=== PATIENT | male | born 1945 | race Caucasian/White ===

== ENCOUNTER 2020-12-11 12:32 | Outpatient (CLI) | payer MEDICARE, SELFPAY ==
--- NOTE | ~2020-12-11 | XR_ITS ---
XR ribs LT 2V w CXR 2V DATE: 12/11/2020 12:55 INDICATION: Lower rib pain following a fall 2 months ago TECHNIQUE: PA and lateral chest. 3 views of the left ribs. COMPARISON: None FINDINGS: There are old healed left sixth through eighth posterolateral rib fractures. No apparent re cent left rib fracture. Diffuse osteopenia. Normal heart size. Aortic calcification. No hilar or mediastinal enlargement. No pulmonary infiltrate or consolidation, pleural effusion or pulmonary vascular congestion or pneumo thorax. IMPRESSION: No apparent recent left rib fracture No active cardiac pulmonary disease Aortic calcification Reviewed, dictated and finalized at location A.
== END 2020-12-11 12:33 | disposition home or self-care (01) ==
PROVIDERS: PCP Family Medicine Adolescent Medicine; Visit Provider Physician Assistant
DX: R07.81 Pleurodynia (principal); I70.0 Atherosclerosis of aorta
CPT/HCPCS: 71046; 71100

== ENCOUNTER 2021-03-22 01:47 | Day surgery (SDC) | payer MEDICARE, SELFPAY ==
[2021-03-06 15:38] VITALS: BMI 29.1
[2021-03-22 08:12] VITALS: BP 181/73; PULSE 69; RESP 18; TEMP 36.2; O2SAT 100; BMI 28.8
[2021-03-22] MEDS: LACTATED RINGERS 1,000 ML 150 ML IV CONT (08:41)
[2021-03-22 08:45] LABS: Glucose Point of Care 236 mg/dl (65-105)
--- NOTE | 2021-03-22 08:51 | WPDHPUPDATE1 ---
History and Physical Update Update Date/Time: 03/22/21 08:51 History and Physical has been reviewed, including an updated exam of the patient. There are NO changes in the patient's condition. Risks, benefits, and alternatives have been discussed and questions answered. Patient agrees to proceed with procedure.
--- NOTE | 2021-03-22 09:05 | WPDANESEPPF ---
Anes - Initial Pre Proc Eval Procedure: Operation Date: 03/22/21 09:15 Proposed Procedures p Colonoscopy - Jaswinder Troncoso MD Date/Time: 03/22/21 09:05 Surgeon: Jaswinder Troncoso MD Pre Op Diagnosis: change in bowel habits Patient Data Age: 75 Gender: M Height: 1.73 m Weight: 85.9 kg Last Vital Signs Temp 97.1 F L 03/22/21 08:12 Pulse 69 03/22/21 08:12 Resp 18 03/22/21 08:12 BP 181/73 H 03/22/21 08:12 Pulse Ox 100 03/22/21 08:12 Allergies Allergy/AdvReac Type Severity Reaction Status Date / Time No Known Allergies Allergy Verified 03/06/21 15:38 Home Medications Medication Instructions Recorded Confirmed Type insulin admin supplies 01/02/21 02/14/21 History insulin detemir U-100 100 unit/mL 40 unit SUBCUT QHS 01/02/21 03/06/21 History subcutaneous solution losartan 50 mg tablet 50 mg PO DAILY 01/02/21 03/06/21 History pravastatin 20 mg tablet 80 mg PO DAILY tablet 01/02/21 03/06/21 History calcium polycarbophil [FiberCon] 1,250 mg PO BID 03/06/21 03/06/21 History cilostazol 100 mg PO BID 03/06/21 03/06/21 History dulaglutide [Trulicity] 0.75 mg SUBCUT WEEKLY 03/06/21 03/06/21 History insulin aspart U-100 [Novolog 6 - 28 sliding scale dose SUBCUT 03/06/21 03/06/21 History Flexpen U-100 Insulin] TID loperamide [Imodium A-D] 1 mg PO QID PRN 03/06/21 03/06/21 History mirtazapine 30 mg PO HS 03/06/21 03/06/21 History Laboratory Tests 03/22/21 08:41 POC Capillary Glucose 236 mg/dl H mg/dl (65-105) Patient hx anesthesia problems: none Family hx anesthesia problems: none Results Review: All pre-operative results and documents have been reviewed as part of the pre-operative evaluation. [facility] Past Medical History Medical History Hyperlipidemia Family History Family History Grandparent Diabetes mellitus Family history of cardiovascular disease Mother Family history of malignant neoplasm Social History Social History (Updated 02/14/21 @ 14:13 by Ernestina Valencia CMA) Smoking packs per day: 1 Smoking cigarettes per day: 20.0 Years smoked: 55 Smoking pack-years: 55.00 Smoking status: Current every day smoker Tobacco type: cigarettes Alcohol intake: never Substance use: never Living arrangements: alone Spiritual care concerns: No Anes - Eval Final PreProcedure Day of Procedure 03/22/21 09:05 Patient weight: obese Heart: regular rate and rhythm Lungs: clear to auscultation Airway: Mallampati scale class II Neurological: alert and oriented Last oral intake: >/= 8 hours ASA classification: III Emergent: no Anesthetic plan: proceed Anesthesia type and monitoring: general GIVS and standard monitoring Results Review: All pre-operative results and documents have been reviewed as part of the pre-operative evaluation. Informed Consent: The patient's anesthetic plan and its attendant risks and benefits were discussed with the patient/family/POA. Questions were solicited and answers provided to the satisfaction of the patient/family/POA.
[2021-03-22 09:31] VITALS: BP 124/80; PULSE 44; RESP 16; O2SAT 98
[2021-03-22 09:41] VITALS: BP 139/83; BP 152/92; PULSE 52; PULSE 53; RESP 19; O2SAT 100
[2021-03-22 09:44] LABS: Glucose Point of Care 216 mg/dl (65-105)
--- NOTE | 2021-03-22 10:43 | WPDGICN ---
Assessment and Plan Assessment and plan (1) History of colon polyps: Code(s): Z86.010 - Personal history of colonic polyps Status: Acute Assessment and Plan: Patient has a history of colon polyps 3 years ago for that reason colonoscopy will be performed today and should be performed every 3 or 4 years in the future. (2) Change in bowel habit: Code(s): R19.4 - Change in bowel habit Status: Acute Assessment and Plan: Patient has alteration in his bowel habits with constipation and occasional loose stools. FiberCon appears to be improving should be continued long-term. GI Consult Note Consult date/time: 03/22/21 10:43 HPI: Tal Barrientos is a 75 year old male Presents for colonoscopy. He he was identified as having colon polyps 3 years ago. He presents today for follow-up exam. Does report irregular bowel habits with tendency towards constipation occasional diarrhea. He states taking FiberCon is helped his bowel habits dramatically. His bowel habits are now regular. He denies any bleeding. He presents today for colonoscopy Review of Systems Review of Systems: All systems reviewed & are unremarkable except as noted in HPI and below PMFSH Past Medical History Medical History Hyperlipidemia Family History Family History Grandparent Diabetes mellitus Family history of cardiovascular disease Mother Family history of malignant neoplasm Social History Social History (Updated 02/14/21 @ 14:13 by Ernestina Valencia CMA) Smoking packs per day: 1 Smoking cigarettes per day: 20.0 Years smoked: 55 Smoking pack-years: 55.00 Smoking status: Current every day smoker Tobacco type: cigarettes Alcohol intake: never Substance use: never Living arrangements: alone Spiritual care concerns: No Meds Home Medications and Allergies Home Medications Medication Instructions Recorded Confirmed Type insulin admin supplies 01/02/21 02/14/21 History insulin detemir U-100 100 unit/mL 40 unit SUBCUT QHS 01/02/21 03/06/21 History subcutaneous solution losartan 50 mg tablet 50 mg PO DAILY 01/02/21 03/06/21 History pravastatin 20 mg tablet 80 mg PO DAILY tablet 01/02/21 03/06/21 History calcium polycarbophil [FiberCon] 1,250 mg PO BID 03/06/21 03/06/21 History cilostazol 100 mg PO BID 03/06/21 03/06/21 History dulaglutide [Trulicity] 0.75 mg SUBCUT WEEKLY 03/06/21 03/06/21 History insulin aspart U-100 [Novolog 6 - 28 sliding scale dose SUBCUT 03/06/21 03/06/21 History Flexpen U-100 Insulin] TID loperamide [Imodium A-D] 1 mg PO QID PRN 03/06/21 03/06/21 History mirtazapine 30 mg PO HS 03/06/21 03/06/21 History Allergies Allergy/AdvReac Type Severity Reaction Status Date / Time No Known Allergies Allergy Verified 03/06/21 15:38 Vital Signs Vital Signs - 24 hr 03/22/21 08:12 03/22/21 09:31 03/22/21 09:41 Temperature 97.1 F L Pulse Rate 69 44 L 52 L Respiratory Rate 18 16 19 Blood Pressure 181/73 H 124/80 152/92 H Pulse Oximetry 100 98 100 Exam Narrative: physical exam reveals patient be alert. Vital signs stable. HEENT exam unremarkable. Patient is anicteric. Lungs are clear to auscultation and percussion. Heart is without murmur or extra sounds. Abdominal exam bowel sounds present soft nontender with no organomegaly. Digital external rectal exam is normal.
== END 2021-03-22 10:03 | disposition home or self-care (01) ==
PROVIDERS: PCP Family Medicine Adolescent Medicine; Visit Provider Internal Medicine Gastroenterology
PROC: 0DJD8ZZ Inspection of Lower Intestinal Tract, Via Natural or Artificial Opening Endoscopic (ICD-10-PCS; CPT 45378; principal; 2021-03-22 09:15)
DX: R19.7 Diarrhea, unspecified (principal); D12.3 Benign neoplasm of transverse colon; D12.4 Benign neoplasm of descending colon; D12.7 Benign neoplasm of rectosigmoid junction; K63.5 Polyp of colon; K64.8 Other hemorrhoids; K57.30 Diverticulosis of large intestine without perforation or abscess without bleeding; E78.5 Hyperlipidemia, unspecified; E11.9 Type 2 diabetes mellitus without complications; Z79.4 Long term (current) use of insulin; Z79.899 Other long term (current) drug therapy; F17.210 Nicotine dependence, cigarettes, uncomplicated; E66.9 Obesity, unspecified; Z68.28 Body mass index [BMI] 28.0-28.9, adult
CPT/HCPCS: 45380; 45385; 82948; 88305; J2704; J7120

== ENCOUNTER → 2022-02-01 08:41 | Outpatient (CLI) | payer MEDICARE, SELFPAY ==
--- NOTE | ~2022-02-01 | CT_ITS ---
EXAMINATION: CT diagnostic chest wo con DATE: 02/01/2022 08:58 INDICATION: Left anterior chest pain TECHNIQUE: Computed tomography (CT) of the chest was performed without intravenous contrast. The dose -length product (DLP) was 299.26 mGy-cm. Automated exposure control and iterative reconstruction tech nique were employed. COMPARISON: None FINDINGS: There is mild atelectasis. The lungs are free of focal airspace opacities. Nodules of the r ight upper lobe measure up to 4 mm. No pleural effusion or pneumothorax. The heart size is normal. Ca lcified coronary artery atherosclerosis is noted. There are no pathologically enlarged thoracic lymph nodes. Bilateral gynecomastia is noted. There is moderate thoracic spondylosis. IMPRESSION: 1. No CT correlate for the patient's symptoms. Reviewed, dictated and finalized at location F.
== END ==
PROVIDERS: PCP Family Medicine Adolescent Medicine; Visit Provider Family Medicine Adolescent Medicine
DX: R07.89 Other chest pain (principal)
CPT/HCPCS: 71250

== ENCOUNTER 2022-10-24 15:38 | Outpatient (CLI) | payer MEDICARE, SELFPAY ==
--- NOTE | 2022-10-24 15:54 | ECHO_ITS ---
Patient Info Name: Tal Barrientos Age: 77 years : 1945 Gender: Male Ht: 67 in Wt: 190 lbs BSA: 2.04 m2 HR: 64 bpm BP: 179 / 95 mmHg Heart Rhythm: Sinus Rhythm Technical Quality: Fair Exam Date: 10/24/2022 4:02 PM Exam Location: [facility] Patient Status: Outpatient Admit Date: 10/24/2022 Staff Ordering Physician: Bartolo Morejon MD Attending Provider: Bartolo Morejon MD Referring Physician: Jean-Pierre MOERJON; Exam Type: CA echo doppler color flow Study Info Indications - murmur/dyspnea Complete two-dimensional, color flow and Doppler transthoracic echocardiogram is performed. Summary 1. Complete two-dimensional, color flow and Doppler transthoracic echocardiogram is performed. 2. Left ventricular chamber dimension is moderately enlarged. 3. Left ventricular systolic function is normal, estimated at 55-60%. 4. There is moderate concentric increased left ventricular wall thickness. 5. The left ventricular diastolic function is grade I diastolic dysfunction. 6. E/e' 4 is not elevated. 7. Left atrial chamber dimension is moderately enlarged. 8. There is moderate aortic valve sclerosis. 9. There is mild to moderate aortic valve stenosis with a peak velocity of 198 cm/s, mean gradient of 9 mmHg, and aortic valve area of 1.6 cm2. 10. There is mild aortic valve regurgitation. 11. The mitral valve has mildly calcified annulus. 12. No pulmonary hypertension, estimated pulmonary arterial systolic pressure is 6 mmHg. Left Ventricle E/e' 4 is not elevated. Left ventricular chamber dimension is moderately enlarged. Left ventricular systolic function is normal, estimated at 55-60%. There is moderate concentric increased left ventricular wall thickness. The left ventricular diastolic function is grade I diastolic dysfunction. Right Ventricle Right ventricular systolic function is normal and with normal TAPSE 3.3 cm. Right ventricular chamber dimension is normal. Left Atria Left atrial chamber dimension is moderately enlarged. Right Atria Right atrial chamber dimension is normal. Aortic Valve The aortic valve is trileaflet. There is moderate aortic valve sclerosis. There is mild to moderate aortic valve stenosis with a peak velocity of 198 cm/s, mean gradient of 9 mmHg, and aortic valve area of 1.6 cm2. There is mild aortic valve regurgitation. Pulmonic Valve There is no pulmonic regurgitation. Mitral Valve The mitral valve has mildly calcified annulus. There is no mitral valve stenosis. There is no mitral valve regurgitation. Tricuspid Valve There is no tricuspid valve regurgitation. No pulmonary hypertension, estimated pulmonary arterial systolic pressure is 6 mmHg. Pericardium/Pleural There is no pericardial effusion. Inferior Vena Cava Normal inferior vena cava with >50% collapse upon inspiration consistent with normal right atrial pressure, 5 mmHg. Aorta The aortic root size at the sinus of Valsalva is normal. Left Ventricular Outflow Tract Name Value Normal LVOT 2D LVOT Diameter 2.1 cm LVOT Doppler LVOT Peak Gradient 2 mmHg LVOT Mean Gradient 1 mmHg LVOT VTI 17 cm
== END 2022-10-24 15:39 | disposition home or self-care (01) ==
PROVIDERS: PCP Family Medicine Adolescent Medicine; Visit Provider Family Medicine Adolescent Medicine
DX: R06.00 Dyspnea, unspecified (principal)
CPT/HCPCS: 93306

== ENCOUNTER 2023-03-25 11:30 | Outpatient (CLI) | payer MEDICARE, SELFPAY ==
[2023-03-25 17:23] LABS: Alanine Aminotransferase 14 U/L (6-50); Albumin Level 3.9 g/dL (3.5-5.1); Alkaline Phosphatase 62 U/L (38-126); Anion Gap 8 mmol/L (8-16); Aspartate Amino Transferase 39 U/L (17-59); Bilirubin,Total 0.6 mg/dL (0.2-1.3); Blood Urea Nitrogen 24 mg/dL (9-20); Carbon Dioxide 26 mmol/L (22-30); Chloride 105 mmol/L (98-107); Cholesterol 222 mg/dL (0-200); Estimated Glomerular Filt Rate > 60; Glucose 224 mg/dL (65-110); HDL Direct 31 mg/dL; Potassium 4.1 mmol/L (3.4-5.0); Sodium 139 mmol/L (137-145); Triglycerides 183 mg/dL (<150)
[2023-03-25 17:35] LABS: LDL Cholesterol Direct 128 mg/dL
[2023-03-25 17:36] LABS: Creatinine Urine 185.1 mg/dL
[2023-03-25 18:48] LABS: Free T4 Free Thyroxine 1.24 ng/mL (0.78-2.19)
[2023-03-25 20:15] LABS: Microalbumin Urine Random > 1140.0 mg/L (0-16.7)
== END 2023-03-25 11:31 | disposition home or self-care (01) ==
LOC: ANHWCLAB 11:33
PROVIDERS: PCP Family Medicine Adolescent Medicine; Visit Provider Nurse Practitioner Family
DX: E11.3513 Type 2 diabetes mellitus with proliferative diabetic retinopathy with macular edema, bilateral (principal)
CPT/HCPCS: 36415; 80053; 80061; 82043; 82607; 84439; 84443

== ENCOUNTER 2023-04-01 15:12 | Outpatient (RCR) | payer MEDICARE, SELFPAY | END 2023-06-16 10:07 | disposition home or self-care (01) | LOC: ANHDMC 15:12 | PROVIDERS: PCP Family Medicine Adolescent Medicine; Visit Provider Internal Medicine Endocrinology, Diabetes & Metabolism | DX: E11.3513 Type 2 diabetes mellitus with proliferative diabetic retinopathy with macular edema, bilateral (principal); E11.649 Type 2 diabetes mellitus with hypoglycemia without coma; Z71.89 Other specified counseling | CPT/HCPCS: G0108 ==